=== PATIENT | male | born 1960 | race Caucasian/White ===

== ENCOUNTER 2017-12-09 10:20 | Day surgery (SDC) | payer BC ==
[2017-12-02 11:59] VITALS: BMI 36.6
[2017-12-09 10:32] VITALS: TEMP 98.6
[2017-12-09] MEDS ORDERED: PROPOFOL 20 ML ONE (12:40)
[2017-12-09 13:28] VITALS: BP 115/66; PULSE 77
--- NOTE | 2017-12-11 17:18 | PATH ---
Surgical Pathology Report Patient Name: MICHELLE MILAN [facility]. Rec. #: [id number] /Age/Gender: 1960 (Age: 57) / M Account: [id number] Location: [facility]-ENDOSCOPY Taken: 12/09/2017 Received: 12/09/2017 Reported: 12/11/2017 Physicians: Terence Galvez M.D. Specimen(s) Received A: HEPATIC FLEXURE B: TRANSVERSE C: DISTAL TRANSVERSE D: SPLENIC E: LEFT COLON Clinical History polyps Final Diagnosis A. HEPATIC FLEXURE, POLYP, POLYPECTOMY: TUBULAR ADENOMA (S). B. TRANSVERSE, POLYP, POLYPECTOMY: TUBULAR ADENOMA. C. DISTAL TRANSVERSE, POLYP, POLYPECTOMY: TUBULAR ADENOMA. D. SPLENIC, POLYP, POLYPECTOMY: TUBULAR ADENOMA. E. LEFT COLON, POLYP, POLYPECTOMY: TUBULAR ADENOMA. Electronically Signed Yessi Tirado M.D. Gross Description A. Received in formalin, labeled "hepatic flexure " are 2 colon polypoid portions of soft tissue measuring 0.8 x 0.5 x 0.4 cm and 0.5 x 0.5 x 0.4 cm. The base of the polyps is inked in blue and bisected. The specimens are submitted in toto in two cassettes. B. Received in formalin, labeled "transverse" are 2 colon polypoid portions of soft tissue measuring 0.3 and 0.5 cm. in greatest dimension. The specimens are submitted in toto in one cassette. C. Received in formalin, labeled "distal transverse " is a colon polypoid portion of soft tissue measuring 1.2 x 1 x 0.6 cm The base of the polyp is inked in blue. The specimen is serially sectioned and entirely submitted in one cassette. D. Received in formalin, labeled "splenic" is a colon polypoid portion of soft tissue measuring 0.9 x 0.5 x 0.4 cm. in greatest dimension. The base of the polyp is inked in blue, and bisected. The specimen is submitted in toto in one cassette. E. Received in formalin, labeled "left colon" is a colon, polypoid portion of soft tissue measuring 2 x 1.2 x 1 cm. in greatest dimension. The base of the polyp is inked in blue. The specimen is serially sectioned and entirely submitted in toto in one cassette. MLSZ/12/09/2017 san[facility]/12/09/2017
== END 2017-12-09 13:30 | disposition home or self-care (01) ==
LOC: FASU-ENDO 10:20
PROVIDERS: ATTEND Internal Medicine Gastroenterology
PROC: 0DBM8ZX Excision of Descending Colon, Via Natural or Artificial Opening Endoscopic, Diagnostic (ICD-10-PCS; principal; 2017-12-09 12:23)
PROC: 0DBL8ZX Excision of Transverse Colon, Via Natural or Artificial Opening Endoscopic, Diagnostic (ICD-10-PCS; 2017-12-09 12:23)
DX: Z12.11 Encounter for screening for malignant neoplasm of colon (principal); K57.30 Diverticulosis of large intestine without perforation or abscess without bleeding; D12.3 Benign neoplasm of transverse colon; D12.4 Benign neoplasm of descending colon
CPT/HCPCS: 88305-TC